=== PATIENT | male | born 1985 | race African-American/Black ===

== ENCOUNTER 2019-06-03 12:00 | Emergency (ER) | payer BC ==
[2019-06-03 12:19] VITALS: BP 146/85; PULSE 85; TEMP 98.5; BMI 39.9
[2019-06-03] MEDS ORDERED: ACETAMINOPHEN 1000 MG/100 ML VIAL (NON FORMULARY) IVPB ONE (12:25)
[2019-06-03] MEDS ORDERED: SODIUM CHLORIDE 1,000 ML IV STA (12:25)
[2019-06-03] MEDS ORDERED: METOCLOPRAMIDE HCL INJECTION 10 MG/2 ML VIAL IVPB ONE (12:25)
[2019-06-03] MEDS ORDERED: METOCLOPRAMIDE HCL INJECTION 10 MG/2 ML VIAL ONE (12:27)
[2019-06-03] MEDS ORDERED: ACETAMINOPHEN INJECTION 100 ML IVPB ONE (12:29)
--- NOTE | 2019-06-03 13:13 | PDOC ---
History of Present Illness - General Chief Complaint: Headache Stated Complaint: HEADACHE RT SIDE Time Seen by Provider: 06/03/19 12:19 History Source: Patient Exam Limitations: No Limitations Past History - Past Medical History Allergies/Adverse Reactions: Allergies Allergy/AdvReac Type Severity Reaction Status Date / Time No Known Allergies Allergy Verified 06/03/19 12:15 Home Medications: Ambulatory Orders metFORMIN HCL [Metformin HCl] 500 mg PO BID 06/03/19 COPD: No Diabetes: Yes (NIDM) HTN: Yes - Immunization History Immunization Up to Date: Yes - Psycho Social/Smoking Cessation Hx Smoking History: Never smoked Information on smoking cessation initiated: No Hx Alcohol Use: No Drug/Substance Use Hx: No *Physical Exam - Vital Signs Last Vital Signs Temp Pulse Resp BP Pulse Ox 98.5 F 85 15 146/85 100 06/03/19 12:16 06/03/19 12:16 06/03/19 12:16 06/03/19 12:16 06/03/19 12:16 - Physical Exam General Appearance: No: Apparent Distress HEENT: positive: AMANUEL, Other (no temporal artery tenderness) Neck: positive: Supple Respiratory/Chest: positive: Lungs Clear, Normal Breath Sounds. negative: Respiratory Distress Cardiovascular: positive: Regular Rhythm Neurologic: positive: volunteer manager II-XII NML intact, Fully Oriented, Alert, Normal Mood/ Affect, Motor Strength /5 ED Treatment Course - Medications Given in the ED: ED Medications Discontinued Medications Generic Name Dose Route Start Last Admin Trade Name Vijayq PRN Reason Stop Dose Admin Acetaminophen 1,000 mg 06/03/19 12:25 06/03/19 12:41 Ofirmev Injection - IVPB 06/03/19 12:26 1,000 mg ONCE ONE Administration Metoclopramide HCl 10 mg 06/03/19 12:25 06/03/19 12:41 Reglan Injection - IVPB 06/03/19 12:26 10 mg ONCE ONE Administration Medical Decision Making - Medical Decision Making 34 y/o M with hx of HTN and T2DM presents with intermittent R sided STARKS x 3 days , 5/10 in pain, not worsened with anything. States pain is not so bad but wanted to get it further evaluated. Has not tried taking for pain as does not like taking pain meds. Does not suffer from headaches. Denies fever, URI sxs, visual/gait changes, n/v, numbness/tingling/weakness of extremities. Not suspicious for ICH, SAH, temporal arteritis, meningitis based on exam Possible migraine STARKS Plan: Tylenol, Reglan, IVF, reassess 06/03/19 13:09 Patient feeling better on reassessment Will refer to neurology Stable for discharge 06/03/19 13:37 Discharge - Discharge Information Problems reviewed: Yes Clinical Impression/Diagnosis: Headache Qualifiers: Headache type: unspecified Headache chronicity pattern: acute headache Intractability: not intractable Qualified Code(s): R51 - Headache Condition: Improved Disposition: HOME - Admission No - Additional Discharge Information Prescription Drug Monitoring Program (I-STOP) results: I-STOP not reviewed - Follow up/Referral Referrals: Yasmany Rico MD [Staff Physician] - 3 days - Patient Discharge Instructions Patient Printed Discharge Instructions: DI for Headache Additional Instructions: Thank you for choosing [facility]. It was a pleasure taking care of you. You may take Motrin 600 mg every 6 hours as needed for mild to moderate pain. Take Motrin with food You were referred to neurology for further evaluation of headaches. Please also follow-up with your regular doctor in 3 days. Return to the Emergency Department if your symptoms worsen or persist, you have fever, vomiting, weakness of extremities (arms and/or legs), changes in vision or walking or other concerning symptoms. - Post Discharge Activity
== END 2019-06-03 14:03 | disposition home or self-care (01) ==
LOC: JERFT 12:00
PROC: 3E033NZ Introduction of Analgesics, Hypnotics, Sedatives into Peripheral Vein, Percutaneous Approach (ICD-10-PCS; principal; 2019-06-03)
PROC: 3E033GC Introduction of Other Therapeutic Substance into Peripheral Vein, Percutaneous Approach (ICD-10-PCS; 2019-06-03)
DX: R51 Headache (principal); I10 Essential (primary) hypertension; E11.9 Type 2 diabetes mellitus without complications; Z79.84 Long term (current) use of oral hypoglycemic drugs
CPT/HCPCS: 99281-25; J0131; J7030